=== PATIENT | female | born 1980 | race Caucasian/White ===

== ENCOUNTER 2024-05-07 10:27 | Outpatient (CLI) | payer BC | END 2024-05-07 10:28 | disposition home or self-care (01) | LOC: BICULT 10:27 | PROVIDERS: ATTEND Registered Nurse | DX: Z12.31 Encounter for screening mammogram for malignant neoplasm of breast (principal); E04.2 Nontoxic multinodular goiter; Z80.3 Family history of malignant neoplasm of breast | CPT/HCPCS: 76536; 77063; 77067 ==

== ENCOUNTER 2025-09-26 10:00 | Inpatient (IN) | payer BC ==
[2025-09-26] MEDS ORDERED: Ropivacaine 0.5% HCl/PF (150 MG/30 ML VIAL) ONE (10:58)
[2025-09-26] MEDS ORDERED: Ropivacaine 0.2% HCl/PF 20 ML ONE (10:58)
[2025-09-26] MEDS ORDERED: Ketorolac Tromethamine 30 MG (1 mL) VIAL ONE (11:51)
[2025-09-26] MEDS ORDERED: Heparin 5,000 UNITS/ML VIAL ONE (11:52)
[2025-09-26] MEDS ORDERED: Acetaminophen 500 MG TAB ONE (11:52)
[2025-09-26] MEDS ORDERED: Bupivacaine 0.25% HCL 30 ML VIAL ONE (12:23)
[2025-09-26] MEDS ORDERED: SUCCINYLCHOLINE/SOD CL,ISO/PF 200 MG/10 ML SYRINGE FS ONE (12:26)
[2025-09-26] MEDS ORDERED: Rocuronium Bromide 10 MG/ML (10ML VIAL) ONE ×2 (12:26→13:06)
[2025-09-26] MEDS ORDERED: fentaNYL PF 100 MCG/2 ML SYRINGE ONE (12:26)
[2025-09-26] MEDS ORDERED: PROPOFOL 40 ML ONE (12:26)
[2025-09-26] MEDS ORDERED: CEFAZOLIN 2 GM VIAL ONE (12:33)
[2025-09-26] MEDS ORDERED: PHENYLEPHRINE-NS 100 MCG/ML 10 ML SYRINGE ONE ×2 (13:06→13:29)
[2025-09-26] MEDS ORDERED: PROPOFOL 200 MG/20 ML VIAL ONE (13:06)
[2025-09-26] MEDS ORDERED: Lidocaine 1% (PF) 30 ML VIAL ONE (13:15)
[2025-09-26] MEDS ORDERED: Ondansetron PF 4 MG/2 ML Vial ONE (13:18)
[2025-09-26] MEDS ORDERED: SUGAMMADEX SODIUM 200 MG/2 ML VIAL ONE (14:18)
[2025-09-26] MEDS ORDERED: diphenhydrAMINE 50 MG/ML VIAL IVP PRN (15:01)
[2025-09-26] MEDS ORDERED: Glucagon 1 MG/ML KIT IM PRN (15:01)
[2025-09-26] MEDS ORDERED: Dextrose 50% Abboject 50 ML SYRINGE SLOW IVP PRN (15:01)
[2025-09-26] MEDS ORDERED: Ondansetron PF 4 MG/2 ML Vial IVP PRN (15:01)
[2025-09-26] MEDS ORDERED: hydrALAZINE 20 MG/ML VIAL SLOW IVP PRN (15:01)
[2025-09-26] MEDS ORDERED: HYDROmorphone 0.5 MG/0.5 ML SYRINGE ONE ×2 (15:12→15:33)
[2025-09-26] MEDS: Ketorolac Tromethamine 30 MG (1 mL) VIAL IVP SCH (18:21)
[2025-09-26] MEDS: oxyCODONE 5 MG TAB PO PRN (18:23)
[2025-09-26] MEDS: D5 1/2 NS w/20 mEq KCL 1,000 ML IV SCH (18:32)
[2025-09-26] MEDS: Gabapentin 300 MG CAP PO SCH (20:12)
[2025-09-27 05:42] LABS: #Basophils 0.04 10x3/uL (0.0-0.2); #Eosinophils 0.06 10x3/uL (0.0-0.7); #Monocytes 0.85 10x3/uL (0.11-0.59); #Neutrophils 9.22 10x3/uL (1.40-6.50); %Basophils 0.3 % (0.0-1.0); %Eosinophils 0.5 % (0.0-10.0); %Lymphocytes 19.6 % (21.0-51.0); %Monocytes 6.7 % (0.0-10.0); %Neutrophils 72.6 % (42.0-75.0); Hematocrit 45.0 % (36.0-47.0); Hemoglobin 13.5 g/dL (12.0-16.0); Mean Corpuscular Hemoglobin 25.6 pg (27.0-31.0); Mean Corpuscular Volume 85.2 fL (78.0-98.0); Platelet Count 276 10x3/uL (130-400); Red Blood Cell (RBC) Count 5.28 mill/uL (4.20-5.40); White Blood Cell (WBC) Count 12.70 10x3/uL (4.8-10.8)
[2025-09-27 06:59] LABS: Anion Gap 13 mmol/L (10-20); BUN (Urea Nitrogen) 11 mg/dL (7.0-18.7); Calc. Creatinine Clearance 182 mL/min (70-130); Calcium 8.7 mg/dL (7.8-10.44); Carbon Dioxide 25 mmol/L (22-29); Chloride 105 mmol/L (98-107); Glucose 90 mg/dL (70-105); Potassium 4.6 mmol/L (3.5-5.1); Sodium 138 mmol/L (136-145)
[2025-09-27] MEDS: Pantoprazole 40 MG VIAL IVP SCH (09:21)
[2025-09-27 13:25] VITALS: TEMP 98.5
[2025-09-27 15:41] VITALS: BMI 48.5
[2025-09-27 17:49] VITALS: BP 137/88
== END 2025-09-27 18:00 | disposition home or self-care (01) | DRG 621 ==
LOC: SDC 10:00 → EDSTATUS 14:30 → SDC 15:00 → SURG A 15:01
PROVIDERS: ADMIT Specialist; ATTEND Specialist
PROC: 0DB64Z3 Excision of Stomach, Percutaneous Endoscopic Approach, Vertical (ICD-10-PCS; principal; 2025-09-26)
PROC: 8E0W4CZ Robotic Assisted Procedure of Trunk Region, Percutaneous Endoscopic Approach (ICD-10-PCS; 2025-09-26)
DX: E66.01 Morbid (severe) obesity due to excess calories (principal); K44.9 Diaphragmatic hernia without obstruction or gangrene; E78.5 Hyperlipidemia, unspecified; F32.A Depression, unspecified; E03.9 Hypothyroidism, unspecified; Z98.890 Other specified postprocedural states; Z87.891 Personal history of nicotine dependence; Z79.899 Other long term (current) drug therapy; Z79.890 Hormone replacement therapy
CPT/HCPCS: 36415; 80048; 85025; 88307; 88342; J0169; J0665; J1171; J1644; J1885; J2003; J2250; J2405; J2470; J2550; J2704; J2795; J3010; J3480; S2900